=== PATIENT | male | born 1965 | race Caucasian/White ===

== ENCOUNTER 2019-04-04 07:08 | Day surgery (SDC) | payer OTHER ==
[~2019-04-04] VITALS: Ht 188 cm; Wt 105.2 kg
--- NOTE | ~2019-04-04 | OR ---
[facility] [address] [place], [place] [address] Draft DATE OF OPERATION: 04/04/2019 SURGEON: Glo Frank MD PREOPERATIVE DIAGNOSES: 1. Gastroesophageal reflux disease. 2. Screening. POSTOPERATIVE DIAGNOSES: 1. Mild distal gastritis. 2. Gzui-gr-saziuyxu barrow-diverticulosis. 3. 3 mm polyp in cecum. 4. 4 mm polyps at distal right colon and 8 cm. PROCEDURES: 1. EGD with CLOtest and biopsy of the antrum and GE junction. 2. Colonoscopy with cold biopsies. ESTIMATED BLOOD LOSS: None. INDICATIONS: Deon is a 53-year-old gentleman, asked to see me for both upper and lower endoscopy. He has had to increase his omeprazole to twice a day in the last few months. He said the acid reflux has been getting worse. He is still having breakthrough symptoms. He quit smoking 10 months ago and that has not helped. He had a negative cardiac evaluation recently. Consequently, they are attributing his symptoms to the acid reflux. He is also in need of a screening colonoscopy. He has no lower GI complaints. There is no family history of colon cancer or polyps. He has never had a previous colonoscopy. In the office, I gave Deon pamphlets on both upper and lower endoscopy. We looked at those together along with the risks including, but not limited to gas, bloating, crampy abdominal pain, bleeding, perforation requiring surgery, and missed diagnosis. We also discussed the need for IV conscious sedation. He had expressed understanding and wished to proceed. DESCRIPTION OF PROCEDURE: Deon was taken into our endoscopy suite and placed in the supine semi-recumbent position. The posterior oropharynx was anesthetized with lidocaine spray. A bite block was utilized for the case. He was given a total of 10 mg of Versed and 200 mcg of fentanyl to cover both cases. The adult gastroscope was introduced and advanced under PATIENT NAME: DEON KING OPERATIVE REPORT DATE OF : 63 REPORT #: [id number] PHYSICIAN: GLO FRANK MD PCP: GERMÁN SOLIZ MD REPORT IS CONFIDENTIAL AND NOT TO BE RELEASED WITHOUT AUTHORIZATION [facility] [address] [place], [place] [address] Draft direct visualization of camera into the third portion of the duodenum without difficulty. The duodenum and pyloric channel were unremarkable. He had some mild erythematous changes in the distal portion of the stomach. We took biopsies of the antrum for CLOtest and pathologic review. Upon retroflexion of scope, I really cannot see he has an obvious hiatal hernia. He has just a little bit of his stomach drawn in on the lesser curve. It is fairly small. There were no gastric or esophageal varices. The scope was withdrawn up through the area of the GE junction, which was compliant without stricture. He does have minimal disruption to his Z-line along with a little granulation tissue consistent with his acid reflux. We went and took a biopsy along the Z-line for pathologic review. Otherwise, the distal, middle and upper esophagus were unremarkable. The gas was suctioned out and the gastroscope removed. Deon tolerated his procedure quite well. Deon was rotated into the left lateral decubitus position. He was maintained on IV sedation with the Versed and fentanyl. A digital rectal exam was performed. He does have some induration and mild enlargement to the prostate gland. The adult colonoscope was then introduced and advanced under direct visualization. It took some additional sedation and abdominal compression in order to get the scope into the cecum itself. His prep was good. We could see the appendiceal orifice and the ileocecal valve. We took pictures throughout for photodocumentation. The above-mentioned polyps were easily removed with the help of the cold biopsy forceps. He did have some diverticula in the right and left colon. They were mjgqcbq-zh-kpxaqgko in size, minimal in number, and scattered about. The scope was then retroflexed and there was no additional pathology noted above the anal canal. After this, the gas was suctioned out and colonoscope removed. Deon tolerated the procedure quite well. RECOMMENDATIONS: I will see Deon back in my office in 7 to 14 days to review his results. Glo Frank MD ALB/MODL /[id number] cc: Darío Bell MD PATIENT NAME: DEON KING OPERATIVE REPORT DATE OF : 63 REPORT #: [id number] PHYSICIAN: GLO FRANK MD PCP: GERMÁN SOLIZ MD REPORT IS CONFIDENTIAL AND NOT TO BE RELEASED WITHOUT AUTHORIZATION [address] [address] Draft MD Germán Garcia MD Copies: DARÍO BELL MD, ANDREW L MD BAKER, DELWYN MD ~ PATIENT NAME: MARQUEZ KINGIzabella Steele OPERATIVE REPORT DATE OF : 63 REPORT #: [id number] PHYSICIAN: GLO FRANK MD PCP: GERMÁN SOLIZ MD REPORT IS CONFIDENTIAL AND NOT TO BE RELEASED WITHOUT AUTHORIZATION
[~2019-04-04 07:08] MED LIST: ADULT ASPIRIN R81 MG PO; BUPROPION XL150 MG PO; LIPITOR40 MG PO; MAXIMUM DAILY1 EACH PO; METOPROLOL SUCC50 MG PO; NITROSTAT0.4 MG SL; OMEPRAZOLE20 MG PO; ZESTRIL5 MG PO
--- NOTE | 2019-04-04 09:05 | NUR ---
04/04/19 0905 Vera Waters 0900- PT ARRIVES TO PACU ALERT AND ORIENTED. PT REPORTS NO PAIN OR NAUSEA. RESP EVEN AND UNLABORED. OXYGEN SAT HIGH 90'S ON 2L VIA NC. 09- PT PASSING FLATUS.
--- NOTE | 2019-04-05 14:33 | PATH ---
[facility] [address] [place] [place], [place] [address] Signed SPECIMEN(S): A ANTRUM/PYLORUS BIOPSY SPECIMEN(S): B GE JUNCTION SPECIMEN(S): C CECUM POLYP SPECIMEN(S): D DISTAL ASCENDING COLON POLYP SPECIMEN(S): E COLON POLYP AT 8 CM SPECIMEN SOURCE: A. ANTRUM/PYLORUS BIOPSY B. GE JUNCTION C. CECUM POLYP D. DISTAL ASCENDING COLON POLYP E. COLON POLYP AT 8 CM CLINICAL HISTORY: GERD, colon screening. Post: Mild gastritis, diverticulosis, polyps x 2. MICROSCOPIC DESCRIPTION: Histologic sections of all submitted blocks are examined by light microscopy. These findings, together with the gross examination, support the pathologic diagnosis. FINAL PATHOLOGIC DIAGNOSIS: A. Antrum/pylorus, biopsy: - Mild chemical/reactive gastropathy. - Negative for intestinal metaplasia. - Negative for Helicobacter pylori organisms on routine stain. B. GE junction, biopsy: - Reactive squamocolumnar mucosa. - Negative for intestinal metaplasia. C. Cecum polyp, polypectomy: - Fragment of hyperplastic polyp. D. Distal ascending colon polyp, polypectomy: - Benign colonic mucosa; see comment. - No evidence of dysplasia or glandular serrations. E. Colon polyp at 8 cm, polypectomy: - Fragments of tubular adenoma. COMMENT: Deeper levels were evaluated with similar findings. DDF:vlg:[id number] GROSS DESCRIPTION: PATIENT NAME: EVELYN KING PATHOLOGY DATE OF : 63 REPORT #: [id number] PHYSICIAN: RAHEEM PATHOLOGY PCP: GERMÁN SOLIZ MD REPORT IS CONFIDENTIAL AND NOT TO BE RELEASED WITHOUT AUTHORIZATION [facility] [address] [place], [place] [address] Signed Five specimens are received in five containers, labeled "DC." A. The specimen, labeled "DC, antrum/pylorus biopsy," is received in formalin and consists of a 0.4 cm in greatest dimension, irregular solis-white soft tissue fragment. The specimen is entirely submitted in cassette (A1). B. The specimen, labeled "DC, GE junction," is received in formalin and consists of a 0.4 cm in greatest dimension, irregular solis-white soft tissue fragment. The specimen is entirely submitted in cassette (B1). C. The specimen, labeled "DC, cecum polyp," is received in formalin and consists of two solis-white soft tissue fragments, ranging from 0.2-0.3 cm in greatest dimension. The specimen is entirely submitted in cassette (C1). D. The specimen, labeled "DC, distal ascending colon polyp," is received in formalin and consists of two solis-white soft tissue fragments, each measuring 0.3 cm in greatest dimension. The specimen is entirely submitted in cassette (D1). E. The specimen, labeled "DC, colon polyp at 8 cm," is received in formalin and consists of four solis-white soft tissue fragments, ranging from 0.2-0.4 cm in greatest dimension. The specimen is entirely submitted in cassette (E1). AR (under the direct supervision of a pathologist) The Gross Description was prepared using a voice recognition system. The report was reviewed for accuracy; however, sound-alike word errors, addition and/or deletions may occur. If there is any question about this report, please contact Client Services. PERFORMING LABORATORY: The technical component was performed by [facility] [address] [place] [id number] (Dinkey Brakeman: Kathi Nix MD; CLIA# [id number]). Professional interpretation was performed by [facility], [address] [address] (Dinkey Brakeman: Michael Cerda MD; CLIA# [id number]). Diagnostician: Adalberto Márquez DO Pathologist Electronically Signed 04/05/2019 Copies: PATIENT NAME: EVELYN KING PATHOLOGY DATE OF : 63 REPORT #: [id number] PHYSICIAN: RAHEEM PATHOLOGY PCP: GERMÁN SOLIZ MD REPORT IS CONFIDENTIAL AND NOT TO BE RELEASED WITHOUT AUTHORIZATION [facility] [address] [place], [place] [address] Signed ~ PATIENT NAME: EVELYN KING PATHOLOGY DATE OF : 63 REPORT #: [id number] PHYSICIAN: RAHEEM PATHOLOGY PCP: GERMÁN SOLIZ MD REPORT IS CONFIDENTIAL AND NOT TO BE RELEASED WITHOUT AUTHORIZATION
== END 2019-04-04 09:40 | disposition home or self-care (01) ==
LOC: DS 07:08
PROVIDERS: Colon & Rectal Surgery
PROC: 0DBH8ZZ Excision of Cecum, Via Natural or Artificial Opening Endoscopic (ICD-10-PCS; 2019-04-04)
PROC: 0DBK8ZZ Excision of Ascending Colon, Via Natural or Artificial Opening Endoscopic (ICD-10-PCS; 2019-04-04)
PROC: 0DBE8ZZ Excision of Large Intestine, Via Natural or Artificial Opening Endoscopic (ICD-10-PCS; 2019-04-04)
PROC: 0DB78ZX Excision of Stomach, Pylorus, Via Natural or Artificial Opening Endoscopic, Diagnostic (ICD-10-PCS; principal; 2019-04-04 08:15)
PROC: 0DB48ZX Excision of Esophagogastric Junction, Via Natural or Artificial Opening Endoscopic, Diagnostic (ICD-10-PCS; 2019-04-04 08:15)
DX: Z12.11 Encounter for screening for malignant neoplasm of colon (principal); D12.6 Benign neoplasm of colon, unspecified; K29.70 Gastritis, unspecified, without bleeding; K31.89 Other diseases of stomach and duodenum; K21.9 Gastro-esophageal reflux disease without esophagitis; K57.30 Diverticulosis of large intestine without perforation or abscess without bleeding; K63.5 Polyp of colon; I25.10 Atherosclerotic heart disease of native coronary artery without angina pectoris; I10 Essential (primary) hypertension; Z87.891 Personal history of nicotine dependence; Z79.82 Long term (current) use of aspirin; Z79.899 Other long term (current) drug therapy
CPT/HCPCS: 99153; G0500; J2250; J3010; J7120